=== PATIENT | male | born 1945 | race Caucasian/White ===

== ENCOUNTER 2018-05-15 14:37 | Inpatient (IN) | payer MEDICARE, OTHER ==
[~2018-05-15] VITALS: Ht 175.3 cm; Wt 85.6 kg
[~2018-05-15 14:37] MED LIST: CYCLOBENZAPRINE10 MG PO; DILAUDID4 MG PO; DOXYCYCLINE HY100 MG PO; FAMOTIDINE20 MG PO; INDOMETHACIN75 MG PO; MOBIC15 MG PO; NORCO 10-325 T1 EACH PO; OMEPRAZOLE20 MG PO; OXYCODONE HCL10 MG PO; PERCOCET 5-3251 EACH PO; TUMS200 MG PO; XARELTO10 MG PO
--- NOTE | 2018-05-21 10:38 | NUR ---
PATIENT HERE TODAY FOR PREADMISSION APPOINTMENT. HE IS SCHEDULED TO HAVE A LEFT TOTAL KNEE ARTHROPLASTY DONE ON 05/26/18. HE HAS HAD A RIGHT TOTAL KNEE ARTHROPLASTY IN THE PAST X2. HE REPORTS THREE STAIRS INTO THE HOME AND NO STAIRS INSIDE THE HOME. HE HAS A FRONT WHEELED WALKER FROM HIS LAST SURGERY. HE STATES HE DID NOT USE A SHOWER BENCH/CHAIR LAST TIME AND IS NOT INTERESTED IN OBTAINING ONE. HE WILL BE ATTENDING THE [facility] WITH PHYSICAL THERAPY THIS AFTERNOON 05/21/18. HE WOULD LIKE PHYSICAL THERAPY SET UP WITH [facility] AND WILL CONTACT THEM THIS WEEK. THIS INFORMATION WILL BE SENT TO DR CEVALLOS OFFICE AND CASE MANAGEMENT FOR FURTHER FOLLOW UP.
--- NOTE | 2018-05-26 06:04 | NUR ---
CHG NASAL SWAB AND ORAL RINSE COMPLETE. CALL LIGHT W/IN REACH.
--- NOTE | 2018-05-26 09:19 | NUR ---
05/26/18 0919 Aleyda Jamison 0908 PATIENT ARRIVES TO PACU UNREPONSIVE TO PAINFUL STIMULI. RESP EVEN AND UNLABORED, ORAL AIRWAY AND NASAL AIRWAY TO LEFT NARE IN PLACE, MASK AT 10 LITERS, WITH SATS AT 95%. 0910 PATIENT COUGHING, REACHES FOR ORAL AIRWAY, REMOVED BY ANESTHESIA. RESP EVEN AND UNLABORED, COARSE UPPER AIRWAY SOUNDS, IMPROVES WITH COUGH. PATIENT RESP BECOME MORE SHALLOW WHEN NOT STIMULATED. IMPROVES WHEN STIMULATED TO COUGH AND DEEP BREATHE. 0915 PATIENT OPENS EYES WITH VERBAL STIMULI, RESP EVEN AND UNLABORED, SHALLOW WHEN NOT STIMULATED. DENIES PAIN.
--- NOTE | 2018-05-26 10:21 | NUR ---
NEW ADMIT TO THE FLOOR. PT AWAKE, ALERT AND ORIENTED X3. PT IS ON 3L OXYGEN PER NC, SAT LEVEL AT THIS TIME IS 93%. PT DENIES PAIN. PT RECEIVED SPINAL PRE OP; PT REPORTS SENSATION BELOW HIP REGION APPROX @T11-12 LEVEL. LEFT KNEE HAS BULKY EDVIN WRAP; CDI, ICE IN PLACE OVER KNEE. ISS AT BEDSIDE; PT USING INDEPENDENTLY. PT DUE TO VOID. EDUCATION PROVIDED REGARDING SPINAL AND VOIDING. PT ORIENTED TO ROOM AND CALL LIGHT. PERSONAL SUPPLIES IN PLACE. CONT PULSE OX IN USE AT BEDSIDE. PERSONAL SUPPLIES WITHIN REACH OF PT.
--- NOTE | 2018-05-26 11:02 | NUR ---
PT AWAKE, ALERT AND ORIENTED X3. PT REMAINS ON 3L OXYGEN, SAT LEVEL OF 95%. PT'S SPINAL IS STILL RESOLVING AT THIS TIME; PT STATES HE CAN NOW FEEL HIS MID THIGHT BILAT REGION. PT DENIES PAIN. HOB ELEVATED. DRESSING TO LEFT KNEE IS CDI. ICE REMOVED FOR A BREAK. PERSONAL SUPPLIES AND CALL LIGHT WITHIN REACH. PT'S IS AT THE BEDSIDE.
--- NOTE | 2018-05-26 12:20 | NUR ---
PT AWAKE, SITTING UP IN BED. PT DENIES PAIN. PT ABLE TO FEEL ABOVE KNEE BILAT. DRESSING TO LEFT KNEE IS CDI. OXYGEN LEVEL IS 95% ON RA, DECREASED OXYGEN TO 2L AT THIS TIME. ENCOUARGED ISS USE; PT DEMONSTRATES ABILITY TO USE INDEPENDENTLY. PT STILL DTV. PERSONAL SUPPLIES AND CALL LIGHT WITHIN REACH.
--- NOTE | 2018-05-26 13:20 | NUR ---
PT AWAKE, ALERT AND ORIENTED X3. PT ON 1L OXYGEN, SAT LEVEL 94%. PT REPORTS FULL SENSATION TO LOWER EXT. LEFT KNEE DRSSING CDI. PT TOLERATING PO INTAKE WELL. PERSONAL SUPPLIES AND CALL LIGHT WITHIN REACH. PT STILL DTV. PT DENIES NEED TO VOID OF YET.
--- NOTE | 2018-05-26 15:33 | NUR ---
MED REC COMPLETE
--- NOTE | 2018-05-26 15:49 | NUR ---
PT UNABLE TO VOID. BLADDER SCANNED PT AND HE HAS 560ML IN BLADDER PER BEDSIDE SCANNER. PT DENIES SENSATION TO VOID.
--- NOTE | 2018-05-26 16:05 | NUR ---
DR. HOOKS NOTIFIED REGARDING PT'S INABILITY TO VOID AND RETENTION OF 560ML PER BLADDER SCANNER. NEW ORDER OBTAINED TO PLACE INDWELLING URINARY CATHETER AND REMOVE IN AM.
--- NOTE | 2018-05-26 16:28 | NUR ---
URINARY CATHETER PLACED USING STERILE TECHIQUE. INSERTED 9ML STERILE WATER INTO CATH BALLOON. IMMEDIATE RETURN OF CLEAR YELLOW URINE. PT TOLERATED WELL.
--- NOTE | 2018-05-26 17:05 | NUR ---
PT WITH COMPLAINT OF NAUSEA, EMESIS OF 200 ML. PT PROVIDED WITH 10 MG IV REGLAN PER ORDER. PT DENIES OTHER NEEDS AT THIS TIME.
--- NOTE | 2018-05-26 18:11 | NUR ---
PT ON 2L OXYGEN. POOR APPETITE, N/V. SL WHEN TOLERATING PO WELL. CONNER PLACED FOR URINE RETENTION. LR @100ML/HR. SPINAL RESOLVED. WORKED WITH PT DOING PASSIVE ROM D/T N/V. NAUSEA IMPROVED.
--- NOTE | 2018-05-26 21:39 | NUR ---
ASSESSMENT DONE. DENIES PAIN AT THIS TIME. ICE TO LEFT KNEE. DRESSING C/D/I. FOOT PUMPS ON. HEEL PROTECTORS REFUSED. IV INFUSING. MEDICATIONS GIVEN (SEE MAR). NO REQUESTS AT THIS TIME.
--- NOTE | 2018-05-26 23:30 | NUR ---
MEDICATION DUE. EDUCATED ON USE OF IS, DEMONSTRATED USE. NO REQUESTS AT THIS TIME.
--- NOTE | 2018-05-27 01:59 | NUR ---
ASSESSMENT DONE. pt DENIES PAIN AT THIS TIME. MEDICATION GIVEN (SEE MAR). DRESSING C/D/I. CALL LIGHT WITHIN REACH.
--- NOTE | 2018-05-27 06:32 | NUR ---
pt RESTED ON AND OFF DURING SHIFT. DRESSING C/D/I. HOME CRYOCUFF TO KNEE. NO EMESIS THIS SHIFT. FOOT PUMPS ON, REFUSES HEEL PROTECTORS. IVF AT THIS TIME. CONNER. USES CALL LIGHT APPROPRIATELY. NO PAIN AT THIS TIME.
--- NOTE | 2018-05-27 06:55 | NUR ---
ASSESSMENT DONE. MEDICATION GIVEN (SEE MAR). pt REPORTED 04/[address] FOOT PUMPS IN PLACE. DRESSING C/D/I. NO REQUESTS AT THIS TIME. CALL LIGHT WITHIN REACH.
--- NOTE | 2018-05-27 07:43 | NUR ---
PT no longer nauseated; SL at this time. Briseno removed per doc order. Catheter tip intact, pt tolerated well. Water replenished. Pt states pain is tolerabale. 1/10 left knee pain. Pt due to void. Urinal provided. Personal supplies and call light wihin reach.
--- NOTE | 2018-05-27 07:46 | NUR ---
PATIENT SITTING UP IN BED, CALL LIGHT IN REACH. PATIENT REFUSED AM CARE. NO OTHER NEEDS AT THIS TIME.
--- NOTE | 2018-05-27 09:35 | NUR ---
PATIENT SITTING UP IN BED, FAMILY IN ROOM. THIS EDITOR MANAGING DIRECTOR CHANGED PATIENTS LINENS AND SET OUT A CLEAN GOWN FOR PATIENT. CALL LIGHT IN REACH, NO OTHER NEEDS AT THIS TIME.
--- NOTE | 2018-05-27 10:23 | OR ---
[facility] [address], [place] [address] Signed DATE OF OPERATION: 05/26/2018 SURGEON: Arthur Hooks MD PREOPERATIVE DIAGNOSIS: End-stage arthritis, left knee. POSTOPERATIVE DIAGNOSIS: End-stage arthritis, left knee. PROCEDURE: Left total knee arthroplasty. IMPLANTS: An Attune size 6 PS femoral component, size #6 tibial tray with a 6 mm poly insert and a 38 mm poly patellar button. ANESTHESIA: Spinal. SPECIMENS AND COMPLICATIONS: There were no specimens or complications. TOURNIQUET TIME: About 85 minutes. WHAT WAS DONE: The patient was taken to the operating room. After anesthesia was induced and the patient gently sedated, the patient was prepped and draped in a routine sterile fashion. The leg was exsanguinated with an Esmarch bandage. Pneumatic tourniquet was inflated to 300 mmHg pressure. We then made an anterior approach to the knee through skin and subcutaneous tissue. Hemostasis was achieved with electrocautery. We then created a small medial flap and performed an anteromedial arthrotomy. The patella was turned on edge, about 10 mm were trimmed off the back aspect of the patella and holes were made for 38 mm all poly patellar button. We then placed the trial and found we had reconstituted the preresection height of 23 mm. The patella was then slid into the lateral recess and the knee was gently flexed. We then attached the [employer]) navigation system and digitized the distal femur per protocol. The distal femur was then resected at the 11 mm teto in neutral varus valgus and in 3 degrees of flexion. The femoral resection was accomplished and the wafers were removed. We then transitioned the Electronically Signed By: ARTHUR HOOKS MD 05/27/18 1023 PATIENT NAME: CYRUS AKBAR OPERATIVE REPORT DATE OF : 45 REPORT #: [id number] PHYSICIAN: ARTHUR HOOKS MD PCP: JANNIE VILLA REPORT IS CONFIDENTIAL AND NOT TO BE RELEASED WITHOUT AUTHORIZATION [facility] [address], [place] [address] Signed navigation system to the proximal tibia. Again, following the prompt, we digitized the proximal tibia per protocol and then resected the proximal tibia in neutral varus valgus, 3 degrees of posterior slope per the Attune protocol and removed about 4 mm off the medial side and 11 mm off the lateral side. The tibial wafer was then removed and was sized to a size 6. We then placed the femoral cutting block on the distal femur. It sized to a size #6 and the 4-in-1 size 6 cutting block was placed. Anterior, posterior, and chamfer cuts were made. The notch cutting block was then placed and the notch was cut out. We then placed a lamina black top spreader machine operator in the knee and removed the remnants of the medial lateral meniscus, ACL and PCL stumps. We then placed the knee in extension and had excellent fit fill and balance with a 6 mm insert and had the same finding in flexion. We therefore placed the femoral trial on the distal femur along with the tibial tray and a 6 mm poly. We then cycled the knee a number of times marked the rotational alignment of the tibial tray. The tibial tray was then prepared with a standard reamer and broach. The knee was copiously irrigated and meticulously dried. The final components were then placed and the cement was allowed to cure with the knee in full extension. We then retrialed the knee and found a 7 mm poly began to compromise our extension. We therefore snap-fit the 6 mm poly onto the tray. The wound was copiously irrigated and closed in a standard fashion. Sterile dressings were applied and the patient was awakened and taken to the recovery room where he arrived in stable condition. Arthur Hooks MD WFB/MODL /[id number] Copies: ~ Electronically Signed By: ARTHUR HOOKS MD 05/27/18 1023 PATIENT NAME: CYRUS AKBAR OPERATIVE REPORT DATE OF : 45 REPORT #: [id number] PHYSICIAN: ARTHUR HOOKS MD PCP: JANNIE VILLA REPORT IS CONFIDENTIAL AND NOT TO BE RELEASED WITHOUT AUTHORIZATION
--- NOTE | 2018-05-27 10:49 | NUR ---
PHYSICAL THERAPY AND RN IN ROOM WITH PATIENT AT THIS TIME.
--- NOTE | 2018-05-27 11:09 | NUR ---
Pt voiding well since lima removed.
--- NOTE | 2018-05-27 13:04 | NUR ---
PATIENT RESTING IN BED, STATES HE WOULD LIKE A BED BATH BUT NOT UNTIL LATER THIS AFTERNOON. CALL LIGHT IN REACH. NO OTHER NEEDS AT THIS TIME.
--- NOTE | 2018-05-27 15:12 | NUR ---
PATIENT RESTING IN BED, THIS RECORDING STUDIO INTERNSHIP ASSISTED TO SET UP PATIENT WITH BED BATH. PATIENT HAD BED BATH WITH LIMITED ASSISTANCE. PATIENT CALL LIGHT IN REACH, NO OTHER NEEDS AT THIS TIME.
--- NOTE | 2018-05-27 17:06 | NUR ---
PATIENT SITTING UP IN BED, WATCHING TV. CALL LIGHT IN REACH. NO OTHER NEEDS AT THIS TIME.
--- NOTE | 2018-05-27 19:32 | NUR ---
RECEIVED REPORT FROM VALENTIN HARTMAN. pt ALERT AND AWAKE. O2 SAT 92% ON ROOM AIR. DRESSING C/D/I. NO REQUESTS AT THIS TIME. WHITEBOARD UPDATED.
--- NOTE | 2018-05-27 20:35 | NUR ---
ASSESSMENT AND MEDICATIONS DUE. pt REQUESTED PAIN PILL FOR 2/10 PAIN. ASSESSMENT DONE. MEDICATIONS GIVEN (SEE MAR). DRESSING C/D/I. CRYOCUFF TO LEFT KNEE. ICE REFRESHED. NO REQUESTS AT THIS TIME. CALL LIGHT WITHIN REACH.
--- NOTE | 2018-05-27 21:58 | NUR ---
ROUNDED ON pt. STATED PAIN 04/30, "IT'S FINE, ESPECIALLY IF I DON'T MOVE". NO REQUESTS AT THIS TIME.
--- NOTE | 2018-05-27 23:39 | NUR ---
V/S AND I&O DONE AND CHARTED.
--- NOTE | 2018-05-28 00:49 | NUR ---
ROUNDED ON pt. RESTING WITH EYES CLOSED, RESPIRATIONS REGULAR, RATE = 16. CALL LIGHT WITHIN REACH.
--- NOTE | 2018-05-28 01:51 | NUR ---
MEDICATION DUE. ASSESSMENT DONE. DRESSING C/D/I. CRYOCUFF REFILLED. FOOT PUMPS ON. pt REPORTED 2/10 PAIN AND REQUESTED PAIN MEDICATION. MEDICATIONS GIVEN (SEE MAR). URINAL EMPTIED. NO FURTHER REQUESTS AT THIS TIME.
--- NOTE | 2018-05-28 04:16 | NUR ---
ROUNDED ON pt. RESTING WITH EYES CLOSED, RESPIRATIONS REGULAR, RATE = 18. CALL LIGHT WITHIN REACH.
--- NOTE | 2018-05-28 05:32 | NUR ---
pt RESTED MOST OF SHIFT. PRN PAIN MEDICATION X2. VOIDING QS. TITRATED TO ROOM AIR. DRESSING C/D/I. HOME CRYOCUFF TO KNEE. FOOT PUMPS ON. USES CALL LIGHT APPROPRIATELY.
--- NOTE | 2018-05-28 07:19 | NUR ---
REPORT RECEIVED FROM VALENTIN AMADOR. PT AWAKE AND RESTING IN BED. PT REPORTS 4/10 PAIN THAT "IS GETTING WORSE AND 9/10 IF I TRY TO MOVE IT." SEE MAR FOR MEDICAITON GIVEN. WARM BLANKET PROVIDED. PT DENIES ADDITIONAL REQUESTS OR COMPLAINTS AT THIS TIME. BED RAILS UP. CALL LIGHT WITHIN REACH.
--- NOTE | 2018-05-28 08:51 | NUR ---
MORNING ASSESSMENT AND MEDICATION DUE. THIS RN TO BEDSIDE. PT WATCHING TV. PT REPORTS 3/10 PAIN THAT INCREASES TO 9/10 WHEN "I TRY TO MOVE AT ALL." ASSESSMENT DONE. CMS INTACT, DRESSING C/D/I. PT ASSITED UP TO CHAIR WITH 2PA, FWW. PAIN INCREASES SIGNIFICATNLY. MD CALLED TO UPDATE ON PT CONDITION AND FOR FURTHER PAIN CONTROL. PT RESTING IN CHAIR. CRYO CUFF IN PLACE. CALL LIGHT WITHIN REACH.
--- NOTE | 2018-05-28 09:00 | NUR ---
MD CALLED FOR PAIN CONTROL ORDERS. ORDERS GIVEN FOR 1-2 TABLETS OF NORCO AND TAPENTADOL. PHARAMCY CALLED FOR CONSULTATION PER MD REQUEST. MD UPDATED ON PHARACIST RECCOMENDATIONS. NEW ORDRES PLACED. ADDITIONAL NORCO GIVEN TO PT TO TRITRATE TO MAXIMUM DOSE. PT NOW REPORTING 6/10 PAIN THAT "STILL GETS WORSE WITH MOVING." PT VISITING WITH . NO ADDITIONAL REQUESTS OR COMPLAINTS AT THIS TIME. CALL LIGHT WITHIN REACH.
--- NOTE | 2018-05-28 10:12 | NUR ---
PT CALL LIGHT ON. PT CONTINUES TO REPORT 7/10 PAIN IN LEFT KNEE. SEE MAR FOR MEDICATION GIVEN. PT REMAINS UP TO CHAIR. PT DENIES DIZZINESS, LIGHT HEADEDNESS, AND SOB. RR = 18 BPM. PT VISITING WITH . NO ADDITIONAL REQUESTS OR COMPLAINTS AT THIS TIME. CALL LIGHT WITHIN REACH. PHYSIAL THERAPY PLANNED FOR 1100.
--- NOTE | 2018-05-28 10:41 | NUR ---
PTS TO NURSES STATION STATING SHE IS "LEAVING FOR NOW BECAUSE HE IS TIRED AND HIGH A KITE." THIS RN TO ROOM TO CHECK ON PT. PT AWAKE AND TALKING WITH PHYSICAL THERAPIST. PT REPORTS 2/10 PAIN WHILE SITTING AND 5/10 WHILE WALKING WITH PHYSIAL THERAPIST. PUPLIS EXHIBIT CRISTHIAN AND CONSTRICT WITH LIGHT. RR = 18 BPM. PT REACHES 1500 ON INCENTIVE SPIROMETER. PT WALKS WITH PHYSICAL THERAPIST TO EDGE OF ROOM AND BEGINS TO FEEL DIZZY. PT BACK TO BED. VITALS TAKEN, WNL. PT RESTING IN BED AND REPORTS DIZZINESS IS "GONE." PHYSICAL THERAPIST PLANS TO COME BACK IN 30MINUTES. BED RAILS UP. CALL LIGHT WITHIN REACH. PT STATES HE HAS NO ADDITIONAL REQUESTS OR COMPLAINTS AT THIS TIME.
--- NOTE | 2018-05-28 11:44 | NUR ---
PT EXPECTS TO RETURN HOME UPON DC AND WOULD LIKE TO DO HIS OP PT AT [facility].
--- NOTE | 2018-05-28 12:26 | NUR ---
NOON ASSESSMENT DUE. PT RESTING WITH EYES CLOSED, RR = 18 BPM. PT AWAKENS TO MOVEMENT IN ROOM. PT REPORTS 2/10 PAIN AND DENIES NAUSEA. PT FINISHED EATING LUNCH, 50% CONSUMED. ASSESSMENT DONE. CMS INTACT, L FOOT COOL TO TOUCH, PT REPORTS NOMRAL SENSATION AND IS ABLE TO LIFT TOES IN CAUDAL DIRECTION, PT STATES "I HAVE COLD FEET SOMETIMES." PT REACHES 1500 ON INCENTIVE SPIROMETER. NO ADDITIONAL REQUESTS OR COMPLAINTS. BED RAILS UP. CALL LIGHT WITHIN REACH. CRYO CUFF AND HEEL PROTECTORS IN PLACE.
--- NOTE | 2018-05-28 13:31 | NUR ---
PT CALL LIGHT ON. PHYSICAL THERAPY REQUESTS THIS RN TO BEDSIDE. PHYSIAL THRAPISTJARRET, STATES PT WAS ATTEMPTING TO WALK AND "GOT DIZZY AND LIGHTHEADDED AGAIN." PT BACK TO BED. VITALS TAKEN. PT REACHES 1500 ON INCENTIVE SPIROMETER. PT DENIES DIZZINESS WHILE LYING DOWN. PT DENIES NASUEA ADN RATES PAIN AT 2/10 WHILE LYING DOWN AND 7/10 PAIN WHEN TRYING TO WALK WITH PHYSICAL THERAPY. DRESSING REMAINS CDI. CMS INTACT. NO ADDITIONAL REQUESTS OR COMPLAINTS AT THIS TIME. CALL LIGHT WITHIN REACH
--- NOTE | 2018-05-28 14:04 | NUR ---
THIS RN TO ROOM TO CHECK ON PT. PT REPORTS 2/10 PAIN AND DENIES DIZZINESS. SCHDULED TORDOL GIVEN. PT CONTINUES RESTING IN BED. NO ADDITIONAL REQUESTS OR COMPLAINTS AT THIS TIME. BED RAILS UP. CALL LIGHT WITHIN REACH. CRYO CUFF IN PLACE.
--- NOTE | 2018-05-28 15:44 | NUR ---
THIS RN TO ROOM FOR ROUNDS WITH MD. PT REPORTS 2/10 PAIN. MEDICATION GIVEN IN ANTICIPATION OF PHYSIAL THERAPY. PT VOIDS WITHOUT ISSUE. PT WORKING WITH PHYSICAL THERAPY. NO ADDITIONAL REQUESTS OR COMPLAINTS AT THIS TIME.
--- NOTE | 2018-05-28 17:49 | NUR ---
AFTERNOON ASSESSMENT DUE. PT UP IN BED EATING DINNER. PT DENIES DIZZINESS AND NAUSEA. PT REPORTS 1/10 PAIN WHEN NOT MOVING AND 6/10 PAIN WHEN TRYING TO MOVE. ASSESSMENT DONE. DRESSING C/D/I. CMS INTACT. CRYO CUFF AND HEEL PROTECTORS IN PLACE. PT STATES HE HAS NO QUESTIONS OR CONCERNS AT THIS TIME. PT ABLE TO REACH 1500 ON INCENTIVE SPIROMETER. BED RAILS UP. CALL LIGHT WITHIN REACH.
--- NOTE | 2018-05-28 18:12 | NUR ---
PT POST OP DAY 2 FOR LEFT TKA. INCREASED PAIN TODAY, NEW PAIN MEDICATIONS ADDED. PT UNABLE TO AMBUATE WITH PHYSICAL THERAPY TODAY RELATED TO DIZZINESS. VITAL SIGNS WNL. PT UP TO CHAIR BUT OTHERWISE NOT TOLERATING ACTIVITY. DRESSING C/D/I THIS SHIFT, CMS INTACT. CRYO CUFF AND HEEL PROTECTORS IN PLACE. VOIDING QUANTITY SUFFICIENT. PT USES CALL LIGHT APPROPRIATLY.
--- NOTE | 2018-05-28 19:25 | NUR ---
IN ROOM FOR REPORT, PT IS AWAKE IN BED AND DENIES NEEDS AT THIS TIME. CALL LIGHT IS CLOSE.
--- NOTE | 2018-05-28 20:20 | NUR ---
IN ROOM TO ADMINISTER MEDICATIONS AND ASSESS PT. HE RATES PAIN AT 2/10 AT THIS TIME. HE WOULD LIKE TO STAY ON TOP OF TAKING NORCO Q6H TO AVOID PAIN CLIMBING LIKE EARLIER. HIS DRESSING IS INTACT WITH A QUARTER SIZE SPOT OF SANGIUNOUS DRAINAGE. HE HAS ALL ORDERED DEVICES IN PLACE. PT DENIES NEEDS AT THIS TIME. CALL LIGHT IS CLOSE.
--- NOTE | 2018-05-28 22:01 | NUR ---
ADMINISTERED NORCO PER PATIENT REQUEST. HE DENIES FURTHER NEEDS AT THIS TIME. EMPTIED URINAL AND CALL LIGHT IS WITHIN REACH.
--- NOTE | 2018-05-28 23:35 | NUR ---
PT IS RESTING WITH EYES CLOSED, RR IS EVEN AND NONLABORED. CALL LIGHT IS CLOSE.
--- NOTE | 2018-05-29 02:36 | NUR ---
MEDICATION DUE. ASSESSMENT DONE. DRESSING C/D/I. CRYCUFF TO LEFT KNEE, ICE REFRESHED. FOOT PUMPS AND HEEL PROTECTORS ON. REFILLED ICE WATER. MEDICATION GIVEN (SEE MAR). EDUCATION ON PAIN MANAGEMENT, RATED PAIN 2/10. NO REQUESTS AT THIS TIME. CALL LIGHT WITHIN REACH.
--- NOTE | 2018-05-29 03:24 | NUR ---
ROUNDED ON pt. RESTING WITH EYES CLOSED, RESPIRATIONS REGULAR. RATE = 16. CALL LIGHT WITHIN REACH.
--- NOTE | 2018-05-29 04:59 | NUR ---
pt RESTED ON AND OFF DURING SHIFT. PAIN CONTROLLED WITH PRN MEDICATIONS X2. QUARTER SIZED DRAINAGE ON MEPILEX, OTHERWISE DRESSING CDI. CRYOCUFF, FOOT PUMPS, AND HEEL PROTECTORS IN PLACE. VOIDING QS. IV SL. USES CALL LIGHT APPROPRIATELY.
--- NOTE | 2018-05-29 06:13 | NUR ---
ROUNDED ON pt. RESTING IN BED, VAT CLEANER IN ROOM. pt REPORTED 2/10 PAIN. NO COMPLAINTS AT THIS TIME. CALL LIGHT WITHIN REACH.
--- NOTE | 2018-05-29 09:01 | NUR ---
patient voided 100 mls of dark yellow urine. he is alert and oriented and states that pain level is at a 1/10 to left knee, cms is intact. am medication given and assessment complete.
--- NOTE | 2018-05-29 10:26 | NUR ---
PATIENT WORKED WITH PHYSICAL THERAPY AND DID VERY WELL, PAIN AFTER PHYSICAL THERAPY TOLERABLE AT 4/10.
--- NOTE | 2018-05-29 10:58 | NUR ---
PT IS ALERT, ORIENTED, AND UPBEAT. PT STATED HE HOPES TO BE DC'D TODAY. NAUSEA HAS BEEN AN ISSUE FOR PT SINCE SURGERY, BUT FEELS IT IS CONTROLLED NOW WELL HIS PAIN. EXTENDED A BLESSING, WILL FOLLOW NEEDED
--- NOTE | 2018-05-29 11:47 | NUR ---
PATIENT RESTING, CRYO CUFF FILLED WITH ICE AT THIS TIME, PATIENT STATES THAT PAIN IS CURRENTLY AT A 1/10
--- NOTE | 2018-05-29 13:58 | NUR ---
PATIENT RESTING IN BED CRYO CUFF ON, PAIN LEVEL AT A 2/10, PATIENT REQUESTED A NORCO PO, SCHEDULED TORADOL ALSO GIVEN AT THIS TIME.
[2018-05-29] MEDS ORDERED: NORCO 10-325 T1 EACH PO (14:59)
[2018-05-29] MEDS ORDERED: XARELTO10 MG PO (14:59)
--- NOTE | 2018-05-29 15:13 | NUR ---
patient's iv dc'd in the right hand tip intact no reddness or swelling noted, patient d/c instructions given and pharmacy in to go over home medications with him.
--- NOTE | 2018-05-29 16:42 | NUR ---
THIS MORNING I ASKED PATIENT IF HE WOULD LIKE TO TAKE A SHOWER OR BED BATH AND HE SAID HE WANTED TO DO PHYSICAL THERAPY FIRST AND WAIT FOR THE DOCTOR TO SEE IF HE GETS TO GO HOME. AND IF HE DOES HE WILL DO A BED BATH OR SHOWER AT HOME.
--- NOTE | 2018-06-02 09:47 | NUR ---
FAXED CHART NOTES TO [facility] INCLUDING FACE SHEET, H AND P, PROG NOTES, OP NOTES, PT EVAL AND NOTES. RECIEVED FAX CONFIRMATION.
--- NOTE | 2018-06-04 07:15 | DS ---
[facility] [address] [place], [place] [address] Signed ADMISSION DATE: 05/26/2018 DISCHARGE DATE: 05/29/2018 FINAL DIAGNOSIS: Osteoarthritis of left knee. PROCEDURE PERFORMED: Left total knee arthroplasty. HISTORY OF PRESENT ILLNESS: The patient is a 73-year-old male with end-stage osteoarthritis in his left knee. No longer gets any relief with conservative management. He presented for elective total knee replacement. HOSPITAL COURSE: The patient was admitted to Day Surgery on 05/26/2018. He was taken to the operating room, where he underwent an uneventful cemented total knee with the Attune PS design. Postoperatively, he struggled a little bit with pain control because he is very sensitive to most pain medicines and some issues with dizziness. However, he has currently passed all of his therapy goals and was comfortable taking hydrocodone for pain relief. We will discharge him home on hydrocodone with a referral to physical therapy for the total knee program and Xarelto to continue his DVT prophylaxis. Arthur Varner MD WFB/MODL /[id number] Copies: ~ Electronically Signed By: ARTHUR VARNER MD 06/04/18 0715 PATIENT NAME: CYRUS AKBAR DISCHARGE SUMMARY DATE OF : 45 REPORT #: [id number] PHYSICIAN: ARTHUR VARNER MD PCP: JANNIE VILLA REPORT IS CONFIDENTIAL AND NOT TO BE RELEASED WITHOUT AUTHORIZATION
== END 2018-05-29 15:32 | disposition home or self-care (01) | DRG 470 ==
LOC: MS 05-26 05:35 → DSVR 05-26 05:35 → MS 05-26 06:45
PROVIDERS: ADMIT Orthopaedic Surgery
PROC: 0SRD0J9 Replacement of Left Knee Joint with Synthetic Substitute, Cemented, Open Approach (ICD-10-PCS; principal; 2018-05-26 06:45)
DX: M17.12 Unilateral primary osteoarthritis, left knee (principal); M21.162 Varus deformity, not elsewhere classified, left knee; R42 Dizziness and giddiness; K21.9 Gastro-esophageal reflux disease without esophagitis; G89.29 Other chronic pain; Z79.899 Other long term (current) drug therapy; Z96.651 Presence of right artificial knee joint; Z88.5 Allergy status to narcotic agent; Z88.0 Allergy status to penicillin
CPT/HCPCS: 01402; 36415; 73560; 80048; 85025; 94762; 97110; 97116; 97161; 97530; C1713; C1776; J0690; J1100; J1885; J2250; J2274; J2405; J2704; J2765; J3010; J7120

== ENCOUNTER 2018-06-03 23:35 | Emergency (ER) | payer MEDICARE, OTHER ==
[~2018-06-03] VITALS: Ht 175.3 cm; Wt 85.6 kg
--- OUTSIDE RECORDS SUMMARY | 2018-06-03 23:38 | XMS ---
PreManage Notification: CYRUS AKBAR Security District Supervisor Events No recent Security Events currently on file [facility] There are no care providers on record at this time. Fior has no Care Guidelines for this patient. Jaz VISIT COUNT (12 MO.) 1 [facility] TOTAL 1 NOTE: Visits indicate total known visits. ED/UCC VISIT TRACKING (12 MO.) 06/03/2018 23:35 [facility] TYPE: Emergency COMPLAINT: - MEDICATION ALLERGIC REACTION INPATIENT VISIT TRACKING (12 MO.) 05/26/2018 05:[address] [facility] [place] TYPE: Medical Surgical COMPLAINT: - LT TOTAL KNEE ARTHROPLASTY DIAGNOSES: - Other shelter (current) drug therapy - Unilateral primary osteoarthritis, left knee - Unilateral primary osteoarthritis, left knee - Allergy status to penicillin - Presence of right artificial knee joint - Varus deformity, not elsewhere classified, left knee - Other chronic pain - Dizziness and giddiness - Allergy status to narcotic agent status - Gastro-esophageal reflux disease without esophagitis [email or web address]
[2018-06-04] MEDS ORDERED: PREDNISONE20 MG PO (01:31)
== END 2018-06-04 02:07 | disposition home or self-care (01) ==
LOC: ED 23:35
DX: L50.9 Urticaria, unspecified (principal); Z88.0 Allergy status to penicillin; Z88.5 Allergy status to narcotic agent; Z79.899 Other long term (current) drug therapy
CPT/HCPCS: 96361; 96374; 99283-25; J1200; J7030; J7512

== ENCOUNTER 2021-03-08 07:35 | Day surgery (SDC) | payer MEDICARE, OTHER ==
[~2021-03-08] VITALS: Ht 175.3 cm; Wt 80.0 kg
[~2021-03-08 07:35] MED LIST changes: +PREDNISONE20 MG PO
--- NOTE | 2021-03-08 09:42 | NUR ---
03/08/21 0941 Aleyda Jamison 0971 PATIENT ARRIVES TO PACU AWAKE. ANSWERS QUESTIONS APPROPRIATELY. RESP EVEN AND UNLABORED, NC AT 3 LITERS.
[2021-03-08] MEDS ORDERED: LISINOPRIL10 MG PO (09:54)
--- NOTE | 2021-03-09 07:45 | OR ---
[facility] [address], [place] [address] Signed DATE OF OPERATION: 03/08/2021 SURGEON: Santi Walden MD PREOPERATIVE DIAGNOSES: 1. Personal history of adenomatous polyps in 2009 at age 62. 2. Hyperplastic and tubular adenomas polyps in 2016 at age 70. POSTOPERATIVE DIAGNOSES: 1. Minimal sigmoid diverticulosis. 2. 3-4 mm midline inferior prostate nodule. 3. Minimal internal hemorrhoids. 4. 3 mm polyp at 8 cm. 5. 4 mm polyps x2 at 65 cm/left colon. 6. 5 mm polyps x3 at 90 cm/left colon. 7. 4 mm polyps x2 in distal right colon. 8. 7 mm polyp at 55 cm/left colon. 9. 4 mm polyp at 28 cm/sigmoid colon. 10. 4 mm polyp at 15 cm/rectum. PROCEDURES: Colonoscopy with hot biopsy. ESTIMATED BLOOD LOSS: None. INDICATIONS: Farhan is a 75-year-old gentleman asked to see me for followup colonoscopy. He underwent colonoscopy in 2008 at age 62 while living in [place], [place]. He had adenomatous polyps removed at that time. I repeated his colonoscopy in 2016 at age of 70. He had hyperplastic and tubular adenomatous polyps removed. He did well with Versed and fentanyl. 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 He has excellent functional status and good muscle mass. He has no lower GI complaints. There is no family history of colon cancer or polyps. We did refer to his inferior prostate nodule back in 2016. In the office, I gave him a pamphlet on colonoscopy. He recalls the test quite well. We had reviewed the risk including, but not limited to gas bloating, crampy abdominal pain, bleeding, perforation requiring surgery, and missed diagnosis. He understands the need for IV conscious sedation. He had expressed understanding and wished to proceed. Electronically Signed By: SANTI WLADEN MD 03/09/21 0745 PATIENT NAME: FARHAN AKBAR OPERATIVE REPORT DATE OF : 45 REPORT #: [id number] PHYSICIAN: SANTI WALDEN MD PCP: DENISE MENDIOLA MD REPORT IS CONFIDENTIAL AND NOT TO BE RELEASED WITHOUT AUTHORIZATION [facility] [address], [place] [address] Signed PROCEDURE NOTE: Farhan was taken into our endoscopy suite and placed in the left lateral decubitus position. He was given a total of 6 mg of Versed and 125 mcg of fentanyl to cover the case. A digital rectal exam was performed and again, we can feel a small 3-4 mm nodule in the posterior midline inferior midline of his prostate gland. The prostate gland is moderately enlarged and indurated. The adult colonoscope was introduced and advanced under direct visualization of camera into the cecum itself. His prep was quite excellent. We could easily see the appendiceal orifice and ileocecal valve. The scope was then withdrawn. The above-mentioned polyps had been removed with the help of hot biopsy forceps. The polyps mentioned at 65 and 90 cm were actually distal to the polyp at 55 cm on pulling the scope back in the left colon. We also noticed a few diverticula on this occasion. They were small in size, minimal in number and scattered about the sigmoid colon. Once in the rectum, the scope had been retroflexed and he does have minimal internal hemorrhoid tissue. After this, the gas was suctioned out and the colonoscope removed. Farhan tolerated the procedure quite well. RECOMMENDATIONS: I will see Farhan back in my office in 7 to 14 days to review his results. Once again, he might review his prostate nodule with his primary care provider. It looks like he is going to be on the 5-year rotation. Santi Walden MD ALB/MODL /[id number] cc: MD Santi Lopez MD Copies: DENISE MENDIOLA DMD, ANDREW L MD ~ Electronically Signed By: SANTI WALDEN MD 03/09/21 0745 PATIENT NAME: FARHAN AKBAR OPERATIVE REPORT DATE OF : 45 REPORT #: [id number] PHYSICIAN: SANTI WALDEN MD PCP: DENISE MENDIOLA MD REPORT IS CONFIDENTIAL AND NOT TO BE RELEASED WITHOUT AUTHORIZATION
== END 2021-03-08 10:15 | disposition home or self-care (01) ==
LOC: OPS 07:35 → DS 07:35 → OPS 09:00
PROVIDERS: ATTEND Colon & Rectal Surgery
PROC: 0DBN8ZX Excision of Sigmoid Colon, Via Natural or Artificial Opening Endoscopic, Diagnostic (ICD-10-PCS; 2021-03-08)
PROC: 0DBP8ZX Excision of Rectum, Via Natural or Artificial Opening Endoscopic, Diagnostic (ICD-10-PCS; 2021-03-08)
PROC: 0DBM8ZX Excision of Descending Colon, Via Natural or Artificial Opening Endoscopic, Diagnostic (ICD-10-PCS; 2021-03-08)
PROC: 0DBK8ZX Excision of Ascending Colon, Via Natural or Artificial Opening Endoscopic, Diagnostic (ICD-10-PCS; principal; 2021-03-08 09:00)
DX: D12.6 Benign neoplasm of colon, unspecified (principal); K57.30 Diverticulosis of large intestine without perforation or abscess without bleeding; K64.8 Other hemorrhoids; N40.2 Nodular prostate without lower urinary tract symptoms; Z88.0 Allergy status to penicillin; Z88.5 Allergy status to narcotic agent; Z88.8 Allergy status to other drugs, medicaments and biological substances
CPT/HCPCS: 99153; G0500; J0690; J2250; J3010; J7121